=== PATIENT | male | born 1985 | race African-American/Black ===

== ENCOUNTER 2018-03-14 18:30 | Emergency (ER) | payer MEDICAID, OTHER ==
[~2018-03-14] VITALS: Ht 177.8 cm; Wt 91.0 kg
[2018-03-14 19:24] VITALS: BP 133/73
== END 2018-03-14 23:57 | disposition left against medical advice (07) ==
LOC: ER 18:30
DX: Z53.21 Procedure and treatment not carried out due to patient leaving prior to being seen by health care provider (principal)